=== PATIENT | male | born 1995 | race Two or more races ===

== ENCOUNTER → 2020-03-09 | Outpatient (CLI) | payer OTHER | END | disposition home or self-care (01) | LOC: OFIC 805 12:40 | PROVIDERS: ATTEND Otolaryngology | DX: H90.3 Sensorineural hearing loss, bilateral (principal); H61.23 Impacted cerumen, bilateral ==

== ENCOUNTER 2020-07-01 09:20 | Inpatient (IN) | payer OTHER ==
[~2020-07-01] VITALS: Ht 188 cm; Wt 190.0 kg
[2020-07-01] MEDS ORDERED: AZITHROMYCIN250 MG PO (09:41)
[2020-07-01] MEDS ORDERED: PEPCID AC10 MG (09:42)
[2020-07-01] MEDS ORDERED: RAYOS1 MG (09:42)
[2020-07-01] MEDS ORDERED: BAYER THERAPY325 MG PO (09:43)
[2020-07-01] MEDS ORDERED: CLARITIN10 M1 PO (09:43)
[2020-07-01] MEDS ORDERED: PROAIR HFA8.5 GM IH (09:43)
== END 2020-07-06 21:28 | disposition home or self-care (01) | DRG 179 ==
LOC: ER 09:20 → MEDJ 19:31
PROVIDERS: ADMIT Specialist; ATTEND Specialist
PROC: XW033E5 Introduction of Remdesivir Anti-infective into Peripheral Vein, Percutaneous Approach, New Technology Group 5 (ICD-10-PCS; principal; 2020-07-01)
PROC: 4A033R1 Measurement of Arterial Saturation, Peripheral, Percutaneous Approach (ICD-10-PCS; 2020-07-01)
PROC: 3E0F7SF Introduction of Other Gas into Respiratory Tract, Via Natural or Artificial Opening (ICD-10-PCS; 2020-07-01)
PROC: 3E0F7GC Introduction of Other Therapeutic Substance into Respiratory Tract, Via Natural or Artificial Opening (ICD-10-PCS; 2020-07-01)
PROC: 8E0ZXY6 Isolation (ICD-10-PCS; 2020-07-01)
PROC: BW25ZZZ Computerized Tomography (CT Scan) of Chest, Abdomen and Pelvis (ICD-10-PCS; 2020-07-01)
PROC: B24BZZZ Ultrasonography of Heart with Aorta (ICD-10-PCS; 2020-07-05)
DX: U07.1 COVID-19 (principal); R09.02 Hypoxemia; R06.02 Shortness of breath; Z60.4 Social exclusion and rejection; R00.1 Bradycardia, unspecified